=== PATIENT | male | born 1995 | race Two or more races ===

== ENCOUNTER 2024-08-28 20:19 | Observation (INO) ==
[2024-08-28] MEDS: 0.9 % SODIUM CHLORIDE 1,000 ML IV ONE (21:10)
[2024-08-28] MEDS: ONDANSETRON 4 MG/2 ML VIAL IV ONE (21:11)
[2024-08-28] MEDS: KETOROLAC 30 MG/ML VIAL IV ONE (21:11)
[2024-08-28 21:41] LABS: Basophils # (Auto) 0.04 K/mcL (0.00-0.30); Basophils % (Auto) 0.4 % (0.0-2.0); Eosinophils # (Auto) 0.49 K/mcL (0.00-0.70); Eosinophils % (Auto) 5.3 % (0.0-7.0); Hematocrit 42.8 % (40.1-51.0); Hemoglobin 14.9 g/dL (13.7-17.5); Lymphocytes # (Auto) 1.38 K/mcL (1.50-4.80); Lymphocytes % (Auto) 14.8 % (15.5-49.0); Mean Corpuscular HGB Conc 34.8 g/dL (31.0-36.0); Monocytes # (Auto) 0.74 K/mcL (0.10-0.90); Monocytes % (Auto) 7.9 % (1.0-12.0); Neutrophils % (Auto) 71.4 % (38.0-78.0); Platelet Count 174 K/mcL (140-440); RBC 5.09 M/mcL (4.63-6.08); WBC 9.3 K/mcL (4.5-11.0)
[2024-08-28 21:53] LABS: ALT/SGPT 18 U/L (<40); AST/SGOT 22 U/L (<40); Albumin 4.4 gm/dL (3.2-5.2); Albumin/Globulin Ratio 1.4 (1.0-2.3); Alkaline Phosphatase 65 U/L (39-117); Anion Gap 15.0 (8.0-16.0); Bilirubin,Total 0.8 mg/dL (0.1-1.0); Blood Urea Nitrogen 9 mg/dL (6-20); Calcium 9.7 mg/dL (8.6-10.4); Carbon Dioxide 24 mmol/L (22-30); Chloride 98 mmol/L (96-108); Globulin 3.1 gm/dL (2.2-3.7); Glucose 92 mg/dL (70-105); Potassium 3.3 mmol/L (3.3-5.1); Sodium 137 mmol/L (133-145)
[2024-08-28] MEDS ORDERED: ACETAMINOPHEN 325 MG TABLET PO PRN (23:50)
[2024-08-29 00:05] LABS: Bilirubin,Urine Negative (Negative); Color,Urine Yellow; Glucose,Urine (UA) Negative (Negative); Ketones,Urine 40 mg/dL (Negative); Leukocyte Esterase,Urine Negative /uL (Negative); PH,Urine 8.5 (5.0-9.0); Protein,Urine Negative (Negative); Specific Gravity,Urine 1.015 (1.000-1.035); Urobilinogen,Urine Normal
[2024-08-29] MEDS: CEFEPIME 1 GM VIAL IV SCH (00:11)
[2024-08-29] MEDS: LACTATED RINGERS 1,000 ML IV SCH (00:11)
[2024-08-29] MEDS ORDERED: POTASSIUM CHLORIDE 40 MEQ in DEXTROSE 5% IN WATER 500 ML IV ONE (08:53)
[2024-08-29] MEDS: POTASSIUM CHLORIDE 10 MEQ/100 ML BAG IV SCH (09:46)
[2024-08-29] MEDS ORDERED: LIDOCAINE 2% PF 5 ML VIAL ONE (12:21)
[2024-08-29] MEDS ORDERED: HYDROmorphone 0.5 MG/0.5 ML SYRINGE ONE ×2 (12:21→14:14)
[2024-08-29] MEDS ORDERED: SUCCINYLCHOLINE 200 MG/10 ML VIAL IV ONE (12:21)
[2024-08-29] MEDS ORDERED: PROPOFOL 200 MG/20 ML VIAL IV ONE (12:22)
[2024-08-29] MEDS ORDERED: ONDANSETRON 4 MG/2 ML VIAL ONE (12:48)
[2024-08-29] MEDS ORDERED: METOCLOPRAMIDE 10 MG/2 ML VIAL ONE (12:48)
[2024-08-29] MEDS ORDERED: DEXMEDETOMIDINE HCL 200 MCG/2 ML VIAL ONE (12:48)
[2024-08-29] MEDS ORDERED: DEXAMETHASONE 10 MG/ML VIAL ONE (12:48)
[2024-08-29] MEDS ORDERED: KETOROLAC 30 MG/ML VIAL ONE (12:48)
[2024-08-29] MEDS ORDERED: ROCURONIUM 10 MG/ML ML IV ONE (12:48)
[2024-08-29] MEDS ORDERED: IPRATROPIUM/ALBUTEROL 3 ML AMPUL.NEB NEB PRN (14:08)
[2024-08-29] MEDS ORDERED: fentaNYL 100 MCG/2 ML VIAL IV PRN (14:08)
[2024-08-29] MEDS ORDERED: DROPERIDOL 5 MG/2 ML VIAL IV PRN (14:08)
[2024-08-29] MEDS ORDERED: HYDROmorphone 0.5 MG/0.5 ML SYRINGE IV PRN (14:08)
[2024-08-29] MEDS ORDERED: METOCLOPRAMIDE 10 MG/2 ML VIAL IV PRN (14:08)
[2024-08-29] MEDS ORDERED: SUGAMMADEX SODIUM 200 MG/2 ML VIAL IV ONE (14:10)
[2024-08-29] MEDS: METHOCARBAMOL 1,000 MG/10 ML VIAL IV PRN (14:38)
[2024-08-29] MEDS: ACETAMINOPHEN 1,000 MG/100 ML BAG IV SCH (15:51)
[2024-08-29] MEDS: HYDROmorphone 0.5 MG/0.5 ML SYRINGE IV PRN (15:51)
[2024-08-29] MEDS: HYDROmorphone 0.5 MG/0.5 ML SYRINGE IV ONE (17:14)
[2024-08-29] MEDS: HYDROmorphone 0.5 MG/0.5 ML SYRINGE ONE (17:39)
[2024-08-29] MEDS: ONDANSETRON 4 MG/2 ML VIAL IV PRN (22:28)
[2024-08-30 06:52] LABS: Basophils # (Auto) 0.02 K/mcL (0.00-0.30); Basophils % (Auto) 0.2 % (0.0-2.0); Eosinophils # (Auto) 0 K/mcL (0.00-0.70); Eosinophils % (Auto) 0 % (0.0-7.0); Hematocrit 37.0 % (40.1-51.0); Hemoglobin 13.0 g/dL (13.7-17.5); Lymphocytes # (Auto) 0.65 K/mcL (1.50-4.80); Lymphocytes % (Auto) 8.0 % (15.5-49.0); Mean Corpuscular HGB Conc 35.1 g/dL (31.0-36.0); Monocytes # (Auto) 0.31 K/mcL (0.10-0.90); Monocytes % (Auto) 3.8 % (1.0-12.0); Neutrophils % (Auto) 87.8 % (38.0-78.0); Platelet Count 117 K/mcL (140-440); RBC 4.33 M/mcL (4.63-6.08); WBC 8.1 K/mcL (4.5-11.0)
[2024-08-30 07:06] LABS: ALT/SGPT 37 U/L (<40); AST/SGOT 32 U/L (<40); Albumin 3.5 gm/dL (3.2-5.2); Albumin/Globulin Ratio 1.3 (1.0-2.3); Alkaline Phosphatase 51 U/L (39-117); Anion Gap 12.0 (8.0-16.0); Bilirubin,Direct 0.4 mg/dL (<0.3); Bilirubin,Total 0.7 mg/dL (0.1-1.0); Blood Urea Nitrogen 7 mg/dL (6-20); Calcium 9.0 mg/dL (8.6-10.4); Carbon Dioxide 23 mmol/L (22-30); Chloride 99 mmol/L (96-108); Globulin 2.7 gm/dL (2.2-3.7); Glucose 105 mg/dL (70-105); Phosphorous 3.5 mg/dL (2.5-4.5); Potassium 3.7 mmol/L (3.3-5.1); Sodium 134 mmol/L (133-145); Triglycerides 41 mg/dL (<150); Uric Acid 5.1 mg/dL (2.5-8.0)
== END 2024-08-30 17:24 | disposition home or self-care (01) ==
LOC: MEDSUR 20:19 → ED 20:19 → MEDSUR 08-29 00:32
PROVIDERS: ADMIT Family Medicine Adult Medicine; ATTEND Family Medicine Adult Medicine